=== PATIENT | male | born 1990 | race Caucasian/White ===

== ENCOUNTER 2018-12-25 01:33 | Emergency (ER) | payer OTHER, SELFPAY ==
[~2018-12-25] VITALS: Ht 180.3 cm; Wt 102.3 kg
[2018-12-25 01:33] VITALS: BP 145/86
[2018-12-25] MEDS ORDERED: LIDOCAINE 1% MDV INJ 50 ML VIAL SC ONE (02:00)
[2018-12-25] MEDS ORDERED: TETANUS/DIPHTHERIA TOX ADSORB ADULT 0.5ML SYR/VIAL (90714) IM ONE (02:00)
[2018-12-25] MEDS ORDERED: LIDOCAINE 1% MDV 20ML VIAL SC ONE (02:15)
== END 2018-12-25 02:25 | disposition home or self-care (01) ==
LOC: M ED 01:33
DX: S61.412A Laceration without foreign body of left hand, initial encounter (principal); W26.8XXA Contact with other sharp object(s), not elsewhere classified, initial encounter; Y92.098 Other place in other non-institutional residence as the place of occurrence of the external cause

== ENCOUNTER → 2019-07-19 | Outpatient (CLI) | payer OTHER ==
[2019-07-19 16:40] LABS: FREE T3 2.4 PG/ML (2.2-4.0); FREE T4 0.91 NG/DL (0.76-1.46); THYROID STIMULATING HORMONE 3.28 uIU/ML (0.358-3.740)
== END ==
LOC: M WUC 14:13
PROVIDERS: ATTEND Family Medicine
DX: E07.9 Disorder of thyroid, unspecified (principal)

== ENCOUNTER → 2025-07-03 | Outpatient (REF) | payer OTHER | LOC: M LAB REF 17:16 | PROVIDERS: ATTEND Physician Assistant | DX: J02.9 Acute pharyngitis, unspecified (principal) ==